=== PATIENT | male | born 1990 | race African-American/Black ===

== ENCOUNTER 2018-03-11 17:49 | Emergency (ER) | payer OTHER ==
[2018-03-11] MEDS ORDERED: Ketorolac 60 MG/2 ML SDV IM ONE (18:29)
--- NOTE | 2018-03-11 18:34 | EDM.PDOC ---
ED HPI GENERAL MEDICAL PROBLEM - General Chief Complaint: Headache Stated Complaint: HEADACH,FEVER Time Seen by Provider: 03/11/18 18:21 Source of Information: Reports: Patient History Limitations: Reports: No Limitations - History of Present Illness INITIAL COMMENTS - FREE TEXT/NARRATIVE: HISTORY AND PHYSICAL: History of present illness: Patient is a 27-year-old male presents to the emergency room with multiple complaints. He states 3 days ago he flew to [place] from [place] and since then has had a mild headache and generally feeling unwell. He states he had a subjective fever yesterday but since has been taking Motrin [id number] and feels this has resolved. He denies any chest pain, shortness of breath, cough, abdominal pain, nausea, vomiting, diarrhea or constipation. Review of systems: As per history of present illness and below otherwise all systems reviewed and negative. Past medical history: As per history of present illness and as reviewed below otherwise noncontributory. Surgical history: As per history of present illness and as reviewed below otherwise noncontributory. Social history: No reported history of drug or alcohol abuse. Family history: As per history of present illness and as reviewed below otherwise noncontributory. Physical exam: General: Well-developed and well-nourished 27-year-old -[place] male. Alert and oriented. Nontoxic appearing and in no acute distress. HEENT: Atraumatic, normocephalic, pupils equal and reactive bilaterally, negative for conjunctival pallor or scleral icterus, mucous membranes moist, throat clear, neck supple, nontender, trachea midline. No drooling or trismus noted. No meningeal signs Lungs: Clear to auscultation, breath sounds equal bilaterally, chest nontender. Heart: S1S2, regular rate and rhythm without overt murmur Abdomen: Soft, nondistended, nontender. Negative for masses or hepatosplenomegaly. Negative for costovertebral tenderness. Pelvis: Stable nontender. Genitourinary: Deferred. Rectal: Deferred. Skin: Intact, warm, dry. No lesions or rashes noted. Extremities: Atraumatic, negative for cords or calf pain. Neurovascular unremarkable. Neuro: Awake, alert, oriented. Cranial nerves II through XII unremarkable. Cerebellum unremarkable. Motor and sensory unremarkable throughout. Exam nonfocal. Notes: He is concerned that he has "something wrong with my stomach". As he will intermittently get left upper quadrant pain once every few months, lasting a few seconds over the past 2-3 years. Currently does not have any abdominal pain but is concerned he has a UTI as he feels hesitant to void. Denies any dysuria or hematuria. Patient states he would like to be evaluated for "anxiety disorder". He reports that he has done a lot of research online and feels he would benefit from anxiety medications PRN. He reports that when he flies he gets very anxious and does not feel comfortable until the plane landed on the ground. As soon as the plane landed on the ground he is able to "feel better". I did discuss with the patient that he would need to see a primary care provider for medication administration for this. Lab work and abdominal x-ray series are within normal limits. Supportive care measures were reviewed and discussed with patient. I did encourage them to follow-up with his primary care for his concerns of anxiety disorder. She is agreeable to plan of care and denies any further questions at this time. Diagnostics: UA, strep, abdominal series Therapeutics: Toradol Impression: Headache Viral Illness Plan: 1. Supportive care measures such as Tylenol and ibuprofen as needed for pain management. Make sure you're getting plenty of fluids to prevent dehydration. 2. Please follow-up with a primary caregiver to discuss her concerns of anxiety related to flying. 3. Return to the ED as needed and as discussed. Definitive disposition and diagnosis as appropriate pending reevaluation and review of above. Head Pain Score (Numeric/FACES): 5 - Related Data Allergies Allergy/AdvReac Type Severity Reaction Status Date / Time No Known Allergies Allergy Verified 03/11/18 18:17 Home Meds: Home Meds . [No Known Home Meds] 03/11/18 [History] Past Medical History - Past Health History Medical/Surgical History: Denies Medical/Surgical History - Infectious Disease History Infectious Disease History: Reports: None Social & Family History - Family History Family Medical History: Noncontributory - Tobacco Use Smoking Status *Q: Never Smoker - Caffeine Use Caffeine Use: Reports: Coffee - Recreational Drug Use Recreational Drug Use: No ED ROS GENERAL - Review of Systems Review Of Systems: ROS reveals no pertinent complaints other than HPI. - Physical Exam Exam: See Below (See dictation) Course - Vital Signs Last Recorded V/S: Last Vital Signs Temp 97.8 F 03/11/18 18:17 Pulse 89 03/11/18 18:17 Resp 16 03/11/18 18:17 BP 142/80 H 03/11/18 18:17 Pulse Ox 98 03/11/18 18:17 - Orders/Labs/Meds Orders: Active Orders 24 hr Category Date Time Status Abdomen Series w Chest 1V [CR] Stat Exams 03/11/18 18:28 Ordered CULTURE STREP A CONFIRMATION [RM] Stat Lab 03/11/18 18:34 Results STREP SCRN A RAPID W CULT CONF [RM] Stat Lab 03/11/18 18:34 Ordered UA W/MICROSCOPIC [URIN] Stat Lab 03/11/18 18:34 Ordered Labs: Laboratory Tests 03/11/18 Range/Units 18:34 Urine Color YELLOW Urine Appearance CLEAR Urine pH 6.0 (5.0-8.0) Ur Specific [place] 1.025 (1.001-1.035) Urine Protein NEGATIVE (NEGATIVE) mg/dL Urine Glucose (UA) NEGATIVE (NEGATIVE) mg/dL Urine Ketones NEGATIVE (NEGATIVE) mg/dL Urine Occult Blood NEGATIVE (NEGATIVE) Urine Nitrite NEGATIVE (NEGATIVE) Urine Bilirubin NEGATIVE (NEGATIVE) Urine Urobilinogen 0.2 (<2.0) EU/dL Ur Leukocyte Esterase NEGATIVE (NEGATIVE) Urine RBC 0-1 (0-2/HPF) Urine WBC 0-1 (0-5/HPF) Ur Epithelial Cells RARE (NONE-FEW) Urine Bacteria RARE (NEGATIVE) Meds: Medications Discontinued Medications Generic Name Dose Route Start Last Admin Trade Name Freq PRN Reason Stop Dose Admin Ketorolac Tromethamine 60 mg 03/11/18 18:29 03/11/18 18:40 Toradol IM 03/11/18 18:30 60 mg ONETIME ONE Administration Departure - Departure Time of Disposition: 19:39 Disposition: Home, Self-Care 01 Clinical Impression: Viral illness Headache Qualifiers: Headache type: unspecified Headache chronicity pattern: acute headache Intractability: not intractable Qualified Code(s): R51 - Headache - Discharge Information Instructions: Viral Illness, Adult, General Headache Without Cause, Easy-to- Read Referrals: PCP,None [Primary Care Provider] - Forms: ED Department Discharge Additional Instructions: The following information is given to patients seen in the emergency department who are being discharged to home. This information is to outline your options for follow-up care. We provide all patients seen in our emergency department with a follow-up referral. The need for follow-up, as well as the timing and circumstances, are variable depending upon the specifics of your emergency department visit. If you don't have a primary care physician on staff, we will provide you with a referral. We always advise you to contact your personal physician following an emergency department visit to inform them of the circumstance of the visit and for follow-up with them and/or the need for any referrals to a consulting specialist. The emergency department will also refer you to a specialist when appropriate. This referral assures that you have the opportunity for follow-up care with a specialist. All of these measure are taken in an effort to provide you with optimal care, which includes your follow-up. Under all circumstances we always encourage you to contact your private physician who remains a resource for coordinating your care. When calling for follow-up care, please make the office aware that this follow-up is from your recent emergency room visit. If for any reason you are refused follow-up, please contact the [facility] Emergency Department at and asked to speak to the emergency department charge nurse. [facility] [address] [place] [id number] 1. All testing results were within normal limits. Your symptoms correlate with viral illness. Supportive care measures such as Tylenol and ibuprofen as needed for pain management. Make sure you're getting plenty of fluids to prevent dehydration. 2. Please follow-up with a primary caregiver to discuss her concerns of anxiety related to flying. 3. Return to the ED as needed and as discussed. - My Orders Last 24 Hours: My Active Orders 03/11/18 18:28 Abdomen Series w Chest 1V [CR] Stat 03/11/18 18:34 CULTURE STREP A CONFIRMATION [RM] Stat STREP SCRN A RAPID W CULT CONF [RM] Stat UA W/MICROSCOPIC [URIN] Stat - Assessment/Plan Last 24 Hours: My Active Orders 03/11/18 18:28 Abdomen Series w Chest 1V [CR] Stat 03/11/18 18:34 CULTURE STREP A CONFIRMATION [RM] Stat STREP SCRN A RAPID W CULT CONF [RM] Stat UA W/MICROSCOPIC [URIN] Stat
--- NOTE | 2018-03-12 13:34 | CR ---
EXAM DATE: 03/11/18 PATIENT'S AGE: 27 Patient: JOVITA ROGEL Facility: [place], [place] Site . Site : 1990 Study: XRay Abdomen W CHEST [id number]/12/2018 7:19:21 PM Ordering Physician: Doctor Maza Final Report: INDICATION: Left flank pain for 2 years, fever TECHNIQUE: Chest and Abdominal radiograph 5 views COMPARISON: None FINDINGS: CHEST: Mediastinum: The mediastinum is normal in appearance. The heart silhouette is normal in size and morphology. Lungs: Both lungs are unremarkable in appearance. No sign of pleural effusion seen. No pneumothorax is identified. Bones: Unremarkable for age. ABDOMEN: Bowel: The bowel gas pattern is normal without evidence of bowel obstruction. Soft tissue: No evidence of pneumoperitoneum present. No suspicious calcifications noted. Bones: Unremarkable for age. IMPRESSION: Unremarkable appearance of the chest and abdomen. Dictated by: Ebenezer Jaime MD @ 03/11/2018 19:26:09 (Electronic Signature) Report Signed by Proxy. JULIA
== END 2018-03-11 19:50 | disposition home or self-care (01) ==
LOC: MW.ED 17:49
DX: B34.9 Viral infection, unspecified (principal)
CPT/HCPCS: 74022; 81001; 87081; 87880; 96372; 99284; J1885; 99283